=== PATIENT | female | born 1995 | race African-American/Black ===

== ENCOUNTER 2017-10-07 14:08 | Emergency (ER) | payer MEDICAID ==
[~2017-10-07] VITALS: Ht 165.1 cm; Wt 52.0 kg
[2017-10-07 14:18] VITALS: BP 105/79
== END 2017-10-07 15:43 | disposition left against medical advice (07) ==
LOC: ER 14:08
DX: R11.2 Nausea with vomiting, unspecified (principal); Z32.01 Encounter for pregnancy test, result positive; Z53.21 Procedure and treatment not carried out due to patient leaving prior to being seen by health care provider
CPT/HCPCS: 81025